=== PATIENT | male | born 1980 ===

== ENCOUNTER 2022-06-04 07:11 | Day surgery (SDC) | payer OTHER ==
[~2022-06-04] VITALS: Ht 177.8 cm; Wt 76.2 kg
[~2022-06-04 07:11] MED LIST: CLONAZEPAM0.5 M1 PO; CLONAZEPAM2 M1 PO; EFFEXOR XR75 MG PO
[2022-06-04] MEDS ORDERED: PERCOCET 5-3251 EACH PO (11:46)
== END 2022-06-04 14:50 | disposition home or self-care (01) ==
LOC: CIR.AMB 07:11
PROVIDERS: ATTEND Surgery
DX: K60.1 Chronic anal fissure (principal); K62.89 Other specified diseases of anus and rectum; K62.4 Stenosis of anus and rectum; K64.4 Residual hemorrhoidal skin tags; K64.8 Other hemorrhoids; F12.90 Cannabis use, unspecified, uncomplicated; Z20.822 Contact with and (suspected) exposure to COVID-19